=== PATIENT | male | born 1960 ===

== ENCOUNTER 2021-05-23 11:29 | Outpatient (CLI) | payer OTHER, SELFPAY ==
[2021-05-24 11:47] LABS: PSA, Ultrasensitive 0.61 ng/mL (<= 4.5)
[2021-05-26 11:33] LABS: Testosterone, Total 45 ng/dL (240-950)
== END 2021-05-23 11:30 | disposition home or self-care (01) ==
LOC: LBO 11:31
PROVIDERS: PCP Family Medicine; Visit Provider Radiology Radiation Oncology
DX: C61 Malignant neoplasm of prostate (principal)
CPT/HCPCS: 36415; 84153; 84403

== ENCOUNTER 2022-02-12 12:32 | Outpatient (CLI) | payer OTHER, SELFPAY ==
[2022-02-12 13:24] LABS: ALT 22 U/L (16-63); AST 19 U/L (15-37); Albumin 3.5 g/dL (3.4-5.0); Alkaline Phosphatase 39 U/L (46-116); Anion Gap 3.4 mmol/L (3-11); BUN 17 mg/dL (7-18); Bilirubin, Total 0.3 mg/dL (0.2-1.0); CO2 34.6 mmol/L (21.0-32.0); CREATININE 1.4 mg/dL (0.70-1.30); Calcium 8.8 mg/dL (8.5-10.1); Chloride 101 mmol/L (98-107); Estimated GFR 51.52 (mL/min/1.73m2); Glucose 97 mg/dL (74-106); Sodium 139 mmol/L (136-145); Total Protein 6.8 g/dL (6.4-8.2)
== END 2022-02-12 12:33 | disposition home or self-care (01) ==
LOC: LBO 12:41
PROVIDERS: PCP Family Medicine; Visit Provider Nurse Practitioner Family
DX: C61 Malignant neoplasm of prostate (principal)
CPT/HCPCS: 36415; 80053